=== PATIENT | female | born 1990 | race African-American/Black ===

== ENCOUNTER 2024-03-01 10:46 | Emergency (ER) | payer MEDICAID, OTHER ==
[~2024-03-01] VITALS: Ht 162.6 cm; Wt 57.0 kg
[2024-03-01 10:49] VITALS: O2SAT 99
[2024-03-01 11:44] LABS: BASOPHILS % 0.6 % (0.0-2.0); EOSINOPHILS % 0.8 % (0.0-5.0); HEMATOCRIT. 35.4 % (36.0-48.0); HEMOGLOBIN. 12.1 g/dL (12.0-16.0); LYMPHOCYTES % 29.7 % (20.0-50.0); MEAN CORPUSCULAR HEMOGLOBIN 31.9 pg (28.0-32.0); MEAN CORPUSCULAR VOLUME 93.6 fL (81.0-99.0); MONOCYTES % 6.8 % (2.0-8.0); NEUTROPHILS % 62.1 % (40.0-76.0); PLATELET 362 x1000/uL (130-400); RED BLOOD CELL COUNT 3.79 mill/uL (4.2-5.4); WHITE BLOOD COUNT 9.5 x1000/uL (4.5-11.0)
[2024-03-01 11:47] LABS: CHLORIDE 107 mEq/L (98-107); POTASSIUM 3.9 mEq/L (3.5-5.1); SODIUM 139 mEq/L (136-145)
[2024-03-01 11:48] LABS: CALCIUM 9.5 mg/dL (8.7-10.4); CARBON DIOXIDE 24 mEq/L (21-32)
[2024-03-01 11:48] LABS: CLARITY URINE CLEAR (CLEAR); COLOR URINE DARK YELLOW (YELLOW); GLUCOSE URINE NEGATIVE (NEGATIVE); KETONES URINE TRACE (NEGATIVE); LEUKOCYTE ESTERASE URINE NEGATIVE (NEGATIVE); NITRITE URINE POSITIVE (NEGATIVE); OCCULT BLOOD URINE NEGATIVE (NEGATIVE); PH URINE 5.5 (4.5-8.0); PROTEIN URINE TRACE (NEGATIVE)
[2024-03-01 11:52] LABS: HCG SCREEN NEGATIVE
[2024-03-01 11:53] LABS: GLUCOSE 94 mg/dL (70-105); UREA NITROGEN BLOOD 17 mg/dL (9-23)
[2024-03-01 12:00] LABS: BACTERIA URINE 3+; RBC URINE NONE SEEN /hpf (0-2)
[2024-03-01 12:01] LABS: MUCUS URINE 1+ /lpf (< = 2+); SQUAMOUS EPITHELIAL CELL URINE RARE /lpf (RARE/1+)
[2024-03-01 12:35] LABS: *AMPHETAMINES SCREEN URINE NEGATIVE (NEGATIVE); *BENZODIAZEPINES SCREEN URINE NEGATIVE (NEGATIVE)
[2024-03-01 12:36] LABS: *BARBITURATES SCREEN URINE NEGATIVE (NEGATIVE); *COCAINE SCREEN URINE PRESUMPTIVE POSITIVE (NEGATIVE); CANNABINOID URINE SCREEN PRESUMPTIVE POSITIVE (NEGATIVE); ECSTASY MDMA SCREEN URINE NEGATIVE (NEGATIVE); METHADONE URINE SCREEN NEGATIVE (NEGATIVE); OPIATES URINE SCREEN NEGATIVE (NEGATIVE); PHENCYCLIDINE URINE SCREEN NEGATIVE (NEGATIVE)
[2024-03-01 12:37] LABS: ETHANOL BLOOD < 10 mg/dL (<10)
[2024-03-01] MEDS ORDERED: NITR-87 MT (14:05)
[2024-03-01 14:33] VITALS: BP 118/74; PULSE 81; RESP 16; TEMP 98.6
== END 2024-03-01 14:38 | disposition home or self-care (01) ==
LOC: ER 10:46
DX: R45.851 Suicidal ideations (principal); F32.A Depression, unspecified; N39.0 Urinary tract infection, site not specified
CPT/HCPCS: 36415; 80048; 80305; 80307; 80320; 80329; 81003; 84703; 85025; 99284; G0480